=== PATIENT | female | born 1995 | race Caucasian/White ===

== ENCOUNTER 2020-05-18 15:11 | Emergency (ER) | payer MEDICAID, SELFPAY ==
[2020-05-18 15:15] VITALS: BP 151/103; PULSE 67; RESP 16; O2SAT 100; BMI 51.9
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
[2020-05-18 16:35] LABS: MANUAL DIFF FLAG NO
[2020-05-18] MEDS: 0.9 % Sodium Chloride 1,000 ML 999 ML IVCONT (16:37)
[2020-05-18] MEDS: ondansetron HCL 4 MG/2 ML VIAL IVPUSH (16:37)
[2020-05-18 16:38] LABS: Basophils Percent Auto 0.4 % (0-2); Eosinophils Absolute Auto 0.2 X10*3/uL (0.0-0.4); Eosinophils Percent Auto 2.9 % (0-4); Hematocrit 41.1 % (37-47); Hemoglobin 13.2 g/dl (12.0-16.0); Imm Gran Abs Auto 0.02 X10*3/uL (0.00-0.03); Imm Gran Pct Auto 0.2 % (0.0-0.4); Lymphocytes Absolute Auto 1.3 X10*3/uL (1.2-4.9); Lymphocytes Percent Auto 14.9 % (20-40); Mean Corpuscular HGB Conc 32.1 g/dl (31.0-35.0); Mean Corpuscular Hemoglobin 29.8 pg (27.0-33.0); Mean Corpuscular Volume 92.8 fL (80-98); Mean Platelet Volume 10.6 fL (9.4-12.3); Monocytes Absolute Auto 0.4 X10*3/uL (0.1-1.2); Monocytes Percent Auto 5.1 % (2-11); Neutrophils Absolute Auto 6.4 X10*3/uL (2.0-8.3); Neutrophils Percent Auto 76.5 % (45-73); Platelet Count 206 X10*3/uL (160-400); Red Blood Count 4.43 X10*6/uL (4.20-5.50); Red Cell Distribution Width 13.9 % (11.0-16.0); White Blood Count 8.4 X10*3/uL (4.8-10.8)
[2020-05-18 16:40] LABS: Glucose Urine UA NEG (NEG); Leukocyte Esterase Urine NEG (NEG); Nitrite Urine NEG (NEG); PH >= 9.0 (5.0-8.0); Specific Gravity - Urine 1.015 (1.005-1.025); Urine Blood NEG (NEG); Urine Ketones NEG (NEG); Urine Protein TRACE MG/DL (NEG-TRACE)
[2020-05-18 16:46] LABS: Appearance Urine HAZY; Color Urine YELLOW
[2020-05-18 16:47] VITALS: O2SAT 99
[2020-05-18 16:47] LABS: UPreg QC Valid YES; Urine Pregnancy NEGATIVE (NEGATIVE)
[2020-05-18 16:58] LABS: Ethanol < 10 mg/dL
[2020-05-18 17:02] LABS: Amphetamine Screen Urine Not Detected (Not Detect); Barbiturates, Urine Not Detected (Not Detect); Benzodiazepines Screen Urine Not Detected (Not Detect); Cannabinoid Screen Urine POSITIVE (Not Detect); Cocaine Screen Urine POSITIVE (Not Detect); Opiate Screen Urine POSITIVE (Not Detect); Phencyclidine Screen Urine Not Detected (Not Detect)
[2020-05-18 17:04] LABS: Alanine Aminotransferase 12 U/L (0-31); Albumin Level 4.5 g/dL (3.5-5.0); Alkaline Phosphatase 64 U/L (39-117); Anion Gap 10 (12-20); Aspartate Amino Transferase 23 U/L (5-31); Bilirubin Direct 0.2 mg/dL (0.0-0.5); Bilirubin Total 0.5 mg/dL (0.0-1.0); Blood Urea Nitrogen 8 mg/dL (9-16); Calcium 9.4 mg/dL (8.4-10.2); Carbon Dioxide 30 mmol/L (22-29); Chloride 100 mmol/L (96-108); Creatinine Clr Calc Pharmacy 156.9; Estimated Glomerular Filt Rate > 60; Glucose Random 104 mg/dL (60-115); Potassium 4.8 mmol/l (3.3-5.1); Sodium 135 mmol/L (135-145); Total Protein 7.4 g/dL (6.5-8.0)
[2020-05-18] MEDS: Ketorolac Tromethamine 30 MG/ML VIAL IVPUSH (17:23)
[2020-05-18] MEDS: LORazepam 1 MG TABLET PO (17:23)
--- NOTE | 2020-05-18 18:32 | MHC.CARE ---
CARE team received consult regarding this patient's substance use and potential desire to be referred to ATS (detox) program. CARE team initiated ATS bedsearch and was waiting to hear back from two [facility] facilities ([place] and [place]) however they report it is unlikely they have available appointments this evening. Otherwise no beds available within 50 mile radius. CARE team followed up with [facility] at 1815 and was unable to get a response. CARE team checked in with nurse around 1830 to update. Attempted to meet with patient in room 18 to explain, and it appeared patient had left. Updated nurse.
--- NOTE | 2020-05-18 18:36 | PC.NURSE ---
About 15 mins after med administration patient began to pace around the room stating that she felt better and that she needed to go. patient IV removed per request. md aware. patient stating she has to go and will not wait for d/c information or to follow up with case management again.
--- NOTE | 2020-05-18 19:19 | MHC.CARE ---
CARE team received follow up call from [facility] [place] at 1915. No female beds available at [facility] or [place]. Unable to update patient as she has already left.
== END 2020-05-18 18:45 | disposition left against medical advice (07) ==
LOC: HO.ED 15:47
PROVIDERS: Physician Assistant; Emergency Provider Internal Medicine
DX: F11.23 Opioid dependence with withdrawal (principal); Z71.51 Drug abuse counseling and surveillance of drug abuser; R11.2 Nausea with vomiting, unspecified; Z91.14 Patient's other noncompliance with medication regimen; Z79.899 Other long term (current) drug therapy
CPT/HCPCS: 36415; 80048; 80076; 80307; 80320; 81003; 81025; 85025; 96361; 96374; 96375; 99284; J1885; J2405

== ENCOUNTER 2020-05-28 19:11 | Emergency (ER) | payer MEDICAID, SELFPAY ==
[2020-05-28 19:21] VITALS: BP 141/80; PULSE 62; PULSE 68; RESP 19; TEMP 36.6; O2SAT 97; O2SAT 98; BMI 22.6
[2020-05-28] MEDS: ondansetron HCL 4 MG/2 ML VIAL IVPUSH (19:52)
[2020-05-28] MEDS: 0.9 % Sodium Chloride 1,000 ML 999 ML IVCONT (19:52)
[2020-05-28 20:04] LABS: Basophils Percent Auto 0.3 % (0-2); Eosinophils Percent Auto 0.1 % (0-4); Hematocrit 36.7 % (37-47); Hemoglobin 12.1 g/dl (12.0-16.0); Imm Gran Pct Auto 0.6 % (0.0-0.4); Lymphocytes Absolute Auto 0.6 X10*3/uL (1.2-4.9); MANUAL DIFF FLAG SCAN; Mean Corpuscular Hemoglobin 30.4 pg (27.0-33.0); Mean Corpuscular Volume 92.2 fL (80-98); Mean Platelet Volume 11.2 fL (9.4-12.3); Monocytes Absolute Auto 0.7 X10*3/uL (0.1-1.2); Monocytes Percent Auto 4.5 % (2-11); Neutrophils Absolute Auto 14.2 X10*3/uL (2.0-8.3); Neutrophils Percent Auto 90.5 % (45-73); Platelet Count 191 X10*3/uL (160-400); Red Blood Count 3.98 X10*6/uL (4.20-5.50); Red Cell Distribution Width 13.5 % (11.0-16.0); SCAN SMEAR FLAG 1; White Blood Count 15.7 X10*3/uL (4.8-10.8)
--- NOTE | 2020-05-28 20:10 | ED.ABDPAIN ---
HPI - Abdominal Pain General Chief Complaint: Abdominal Pain Stated Complaint: cough, abdominal pain Time Seen by Provider: 05/28/20 20:03 Source: patient Mode of arrival: ambulatory Limitations: no limitations History of Present Illness HPI narrative: 25-year-old female with past medical history of ovarian cysts here with complaints vomiting, diarrhea, generalized abdominal pain, cough for the last 3 days. She tells me she lives with her sister who is COVID positive at home. She denies any fevers, chills, body aches, urinary symptoms. MD elicited complaint: abdominal pain Onset (ago): day(s) Pain Consistency: intermittent Location: diffuse Severity: mild Quality: cramping Migration to: no migration Exacerbating factors: nothing Relieving factors: nothing Associated symptoms: nausea, vomiting and diarrhea Treatments prior to arrival: NSAIDs Related Data Previous Rx's Medication Instructions Recorded ketorolac 10 mg PO Q8H PRN #10 tab 05/28/20 ondansetron 4 mg PO Q8H PRN 4 Days #10 tab 05/28/20 Allergies Allergy/AdvReac Type Severity Reaction Status Date / Time No Known Allergies Allergy Unverified 04/26/20 19:53 [No Known Allergies*] Review of Systems Review of Systems Yes all other systems are reviewed and are negative Constitutional: Reports no additional constitutional complaints, Denies body ache(s), Denies chills, Denies fever(s), Denies headache(s) and Denies weakness Eyes: Reports no additional eye complaints and Denies change in vision Reports system reviewed and no additional complaints, except as documented, Denies dizziness, Denies headache(s), Denies nasal congestion, Denies nasal discharge and Denies neck pain Cardiovascular: Reports no additional cardiovascular complaints, Denies chest pain, Denies leg edema and Denies dyspnea Respiratory: Reports no additional respiratory complaints, Reports cough and Denies dyspnea Gastrointestinal: Reports no additional gastrointestinal complaints, Reports abdominal pain, Reports diarrhea, Reports nausea and Reports vomiting Genitourinary: Reports no additional female genitourinary complaints and Denies urinary incontinence Musculoskeletal: Reports no additional musculoskeletal complaints, Denies back pain, Denies arthralgias, Denies joint swelling, Denies neck pain, Denies numbness and Denies tingling Skin/Breast: Reports system reviewed and no additional complaints, except as docu and Denies rash Reports system reviewed and no additional complaints, except as documented, Denies Abnormal speech present, Denies dizziness, Denies headache(s), Denies numbness, Denies tingling and Denies weakness Physical Exam Vital Signs: Vital Signs: Vital Signs Temp Pulse Resp BP Pulse Ox 05/28/20 19:21 97.8 F 68 19 141/80 H 97 Body Mass Index 22.6 Const: General: cooperative, healthy appearing, comfortable and no acute distress Orientation/consciousness: patient oriented x3 Limitations: no limitations HENMT: Head: Yes normal to inspection Ears: hearing grossly normal bilaterally General nose exam: Normal external nose present Face and sinus: Yes normal facial exam Mouth: Normal oral and palatal mucosa present Throat: Yes posterior oropharynx normal Eyes: General: appearance normal, both eyes and all related structures Pupils: Equal, round and reactive pupils present Neck: Neck: Yes normal visual inspection Chest: Chest palpation & inspection: normal inspection of the chest Resp: Effort & Inspection: normal respiratory effort Auscultation: clear to auscultation bilaterally Cardio: Rate: regular rate Rhythm: regular rhythm Peripheral pulses: Peripheral pulses 2+ throughout GI: Other: Mild diffuse tenderness. No focal tenderness Inspection: Yes normal to inspection Palpation (GI): Soft to palpation Auscultation: normal bowel sounds Back/Spine/Pelvis: Thoracic/Lumbar Spine: thoracic and lumbar spine normal to inspection Skin: General skin exam: no rashes or lesions noted Neuro: General: patient oriented x3, no focal motor deficits and normal sensation to monofilament Cranial nerves: Yes Equal, round and reactive pupils present Cognition (Neuro): normal cognition Speech: No Abnormal speech present Gait exam (Neuro): Normal gait present Motor exam (neuro): 5/5 motor strength present throughout Extrem: General: Yes normal to inspection Course Course Course Narrative: 25-year-old female here with cough, abdominal pain, vomiting, diarrhea for the last 2 days. Known COVID exposure. On exam she is well-appearing. She does have some mild diffuse tenderness. Will check labs, UA, urine , COVID swab. MDM - Abdominal Pain MDM Narrative Medical decision making narrative: Considered viral syndrome, viral gastroenteritis, COVID-19 infection, UTI Lab Data Result diagrams: 05/28/20 19:57 05/28/20 19:57 Labs: Lab Results 05/28/20 05/28/20 05/28/20 Range/Units 19:57 19:57 19:57 WBC 15.7 H (4.8-10.8) X10*3/uL RBC 3.98 L (4.20-5.50) X10*6/uL Hgb 12.1 (12.0-16.0) g/dl Hct 36.7 L (37-47) % MCV 92.2 (80-98) fL MCH 30.4 (27.0-33.0) pg MCHC 33.0 (31.0-35.0) g/dl RDW 13.5 (11.0-16.0) % Plt Count 191 (160-400) X10*3/uL MPV 11.2 (9.4-12.3) fL Immature Gran % (Auto) 0.6 H (0.0-0.4) % Neut % (Auto) 90.5 H (45-73) % Lymph % (Auto) 4.0 L (20-40) % Hunt % (Auto) 4.5 (2-11) % Eos % (Auto) 0.1 (0-4) % Baso % (Auto) 0.3 (0-2) % Lymph # (Auto) 0.6 L (1.2-4.9) X10*3/uL [place] # (Auto) 0.7 (0.1-1.2) X10*3/uL Eos # (Auto) 0.0 (0.0-0.4) X10*3/uL Baso # (Auto) 0.0 (0.0-0.2) X10*3/uL Abs Immat Gran (auto) 0.10 H (0.00-0.03) X10*3/uL Absolute Neuts (auto) 14.2 H (2.0-8.3) X10*3/uL Absolute Nucleated RBC 0.000 (0.0-0.012) X10*3/uL Nucleated RBC % (auto) 0.0 (0.0-0.2) /100WBC Smear Tech's Comments VERIFIED Hold Blue Top SEE NOTE Sodium 139 (135-145) mmol/L Potassium 4.1 (3.3-5.1) mmol/l Chloride 102 (96-108) mmol/L Carbon Dioxide 28 (22-29) mmol/L Anion Gap 13 (12-20) BUN 8 L (9-16) mg/dL Creatinine 0.74 (0.5-1.4) mg/dL Estim Creat Clear Calc 109.7 Estimated GFR > 60 Random Glucose 116 H (60-115) mg/dL Calcium 9.5 (8.4-10.2) mg/dL Total Bilirubin 0.6 (0.0-1.0) mg/dL Direct Bilirubin 0.3 (0.0-0.5) mg/dL AST 19 (5-31) U/L ALT 9 (0-31) U/L Alkaline Phosphatase 68 (39-117) U/L Total Protein 7.5 (6.5-8.0) g/dL Albumin 4.4 (3.5-5.0) g/dL Lipase 6 L (8-78) U/L Urine Color Urine Appearance Urine pH (5.0-8.0) Ur Specific [place] (1.005-1.025) Urine Protein (NEG-TRACE) MG/DL Urine Glucose (UA) (NEG) MG/DL Urine Ketones (NEG) MG/DL Urine Blood (NEG) Urine Nitrite (NEG) Ur Leukocyte Esterase (NEG) Urine RBC (0) /HPF Urine WBC (0-4) /HPF Ur Squamous Epith Cells /LPF Urine Bacteria /LPF Urine Test (NEGATIVE) 05/28/20 05/28/20 Range/Units 20:26 20:26 WBC (4.8-10.8) X10*3/uL RBC (4.20-5.50) X10*6/uL Hgb (12.0-16.0) g/dl Hct (37-47) % MCV (80-98) fL MCH (27.0-33.0) pg MCHC (31.0-35.0) g/dl RDW (11.0-16.0) % Plt Count (160-400) X10*3/uL MPV (9.4-12.3) fL Immature Gran % (Auto) (0.0-0.4) % Neut % (Auto) (45-73) % Lymph % (Auto) (20-40) % Hunt % (Auto) (2-11) % Eos % (Auto) (0-4) % Baso % (Auto) (0-2) % Lymph # (Auto) (1.2-4.9) X10*3/uL [place] # (Auto) (0.1-1.2) X10*3/uL Eos # (Auto) (0.0-0.4) X10*3/uL Baso # (Auto) (0.0-0.2) X10*3/uL Abs Immat Gran (auto) (0.00-0.03) X10*3/uL Absolute Neuts (auto) (2.0-8.3) X10*3/uL Absolute Nucleated RBC (0.0-0.012) X10*3/uL Nucleated RBC % (auto) (0.0-0.2) /100WBC Smear Tech's Comments Hold Blue Top Sodium (135-145) mmol/L Potassium (3.3-5.1) mmol/l Chloride (96-108) mmol/L Carbon Dioxide (22-29) mmol/L Anion Gap (12-20) BUN (9-16) mg/dL Creatinine (0.5-1.4) mg/dL Estim Creat Clear Calc Estimated GFR Random Glucose (60-115) mg/dL Calcium (8.4-10.2) mg/dL Total Bilirubin (0.0-1.0) mg/dL Direct Bilirubin (0.0-0.5) mg/dL AST (5-31) U/L ALT (0-31) U/L Alkaline Phosphatase (39-117) U/L Total Protein (6.5-8.0) g/dL Albumin (3.5-5.0) g/dL Lipase (8-78) U/L Urine Color YELLOW Urine Appearance CLOUDY Urine pH 8.5 H (5.0-8.0) Ur Specific [place] 1.015 (1.005-1.025) Urine Protein 2+ H (NEG-TRACE) MG/DL Urine Glucose (UA) NEG (NEG) MG/DL Urine Ketones NEG (NEG) MG/DL Urine Blood 1+ H (NEG) Urine Nitrite POS H (NEG) Ur Leukocyte Esterase 1+ H (NEG) Urine RBC 1-4 (0) /HPF Urine WBC 30-49 H (0-4) /HPF Ur Squamous Epith Cells 1+ /LPF Urine Bacteria 1+ /LPF Urine Test NEGATIVE (NEGATIVE) Discharge Plan Discharge Clinical Impression: Acute viral syndrome Patient Disposition: Home, Self-Care Instructions: Viral Syndrome (ED) Additional Instructions: we will call you in 1-2 days with results of your COVID swab Take Motrin and Tylenol if able as needed for pain or fever Prescriptions: New ondansetron 4 mg tablet,disintegrating 4 mg PO Q8H PRN (Reason: nausea and vomiting) 4 Days Qty: 10 RF: 0 ketorolac 10 mg tablet 10 mg PO Q8H PRN (Reason: pain) Qty: 10 RF: 0 Referrals: Physician,Unknown [Primary Care Provider] - 2 days Interventions: ED Discharge Assessment Last Done: 05/28/20 21:43 Discharge Date/Time: 05/28/20 21:44 [facility] Past Medical History Source: nursing notes reviewed Medical History Hypertension Ovarian cyst Substance abuse Social History Social History Alcohol intake: never Smoking Status: Current every day smoker Use of substances other than those prescribed or required for medical reasons: Yes Substance Use Type: Heroin Substance Use Frequency: Socially Last Used Substance: Days (ago) Any prior treatment program specific to substance use: Yes Advance Directives: No Advance Directives Information Provided: Yes
[2020-05-28] MEDS: Ketorolac Tromethamine 30 MG/ML VIAL IVPUSH (20:24)
[2020-05-28 20:25] LABS: SLIDE REVIEW VERIFIED
[2020-05-28 20:26] LABS: Albumin Level 4.4 g/dL (3.5-5.0); Alkaline Phosphatase 68 U/L (39-117); Aspartate Amino Transferase 19 U/L (5-31); Bilirubin Direct 0.3 mg/dL (0.0-0.5); Lipase 6 U/L (8-78); Total Protein 7.5 g/dL (6.5-8.0)
[2020-05-28 20:36] LABS: Alanine Aminotransferase 9 U/L (0-31); Anion Gap 13 (12-20); Bilirubin Total 0.6 mg/dL (0.0-1.0); Blood Urea Nitrogen 8 mg/dL (9-16); Calcium 9.5 mg/dL (8.4-10.2); Carbon Dioxide 28 mmol/L (22-29); Chloride 102 mmol/L (96-108); Creatinine Clr Calc Pharmacy 109.7; Estimated Glomerular Filt Rate > 60; Glucose Random 116 mg/dL (60-115); Potassium 4.1 mmol/l (3.3-5.1); Sodium 139 mmol/L (135-145)
[2020-05-28 20:51] LABS: Glucose Urine UA NEG (NEG); Leukocyte Esterase Urine 1+ (NEG); Nitrite Urine POS (NEG); PH 8.5 (5.0-8.0); Specific Gravity - Urine 1.015 (1.005-1.025); Urine Blood 1+ (NEG); Urine Ketones NEG (NEG)
[2020-05-28 21:12] LABS: Color Urine YELLOW; Urine Protein 2+ MG/DL (NEG-TRACE)
[2020-05-28 21:13] LABS: Appearance Urine CLOUDY
[2020-05-28 21:14] LABS: Bacteria Urine 1+ /LPF; Squamous Epithelial Cell Urine 1+ /LPF; WBC Urine 30-49 /HPF (0-4)
[2020-05-28 21:15] LABS: UPreg QC Valid YES; Urine Pregnancy NEGATIVE (NEGATIVE)
--- NOTE | 2020-05-28 21:39 | PC.NURSE ---
patient was ringing and when this nurse answered the call [place] patient demanded to have iv taken out so she could go to make a phone call in the wr, patient stated she was just told she was being discharged. this nurse looked into the patients chart and indeed saw discharge orders, this nurse removed the iv from the patient and printed her discharge paperwork and asked the patient to wait, patient stated she was leaving and going to use the phone for her ride, this nurse asked the patient to take her belongings with her if she was leaving to use the phone and this nurse would bring discharge paperwork outside to her. patient left the room, this nurse printed paperwork and brought it to the patient. it was noted that the patient was bleeding from the iv site, attempts to change the dressing were declined by the patient. patient signed dc papers and left.
== END 2020-05-28 21:44 | disposition home or self-care (01) ==
PROVIDERS: Nurse Practitioner Family; Emergency Provider Emergency Medicine
DX: B34.9 Viral infection, unspecified (principal); R10.9 Unspecified abdominal pain; Z20.828 Contact with and (suspected) exposure to other viral communicable diseases
CPT/HCPCS: 36415; 80053; 80076; 81001; 81003; 81025; 83690; 85025; 87086; 87088; 87186; 87635; 96361; 96374; 96375; 99284; J1885; J2405

== ENCOUNTER 2020-05-29 11:12 | Emergency (ER) | payer MEDICAID, SELFPAY ==
[2020-05-29 11:16] VITALS: BP 135/85; PULSE 107; RESP 22; TEMP 37.5; O2SAT 100; BMI 23.3
--- NOTE | 2020-05-29 11:29 | ED_ITS ---
HPI - Nausea/Vomiting/Diarrhea General Chief complaint: Nausea/Vomiting/Diarrhea Stated complaint: vomiting Time Seen by Provider: 05/29/20 11:28 Source: patient and old records reviewed Mode of arrival: ambulatory Limitations: no limitations History of Present Illness MD elicited complaint: nausea, vomiting and other (weakness, cough, last used heroin 10pm last night) Pertinent past history: other (heroin and cocaine abuse - IV) Onset (ago): day(s) (2) Description of vomiting: watery and bilious Description of diarrhea: watery Associated nausea: Yes Associated abdominal pain: Yes Location of pain: diffuse Radiation: diffuse Pain consistency: constant Severity: severe Exacerbating factors: none Relieving factors: none Context: other (recent UTI - no antibiotics, using IV heroin last used > 12 hours ago, sister has COVID) Associated symptoms: myalgias, cough, fever/chills, loss of appetite, malaise, nausea/vomiting, dysuria, weakness and anxiety Treatment prior to arrival: NSAIDs Related Data Previous Rx's Medication Instructions Recorded ketorolac 10 mg PO Q8H PRN #10 tab 05/28/20 ondansetron 4 mg PO Q8H PRN 4 Days #10 tab 05/28/20 buprenorphine-naloxone [Suboxone] 1 film BUCCAL BID #5 ea 05/29/20 cefuroxime axetil 500 mg PO BID 10 Days #20 tab 05/29/20 ondansetron 4 mg PO Q8H PRN #20 tab 05/29/20 Allergies Allergy/AdvReac Type Severity Reaction Status Date / Time No Known Allergies Allergy Verified 05/29/20 11:16 [No Known Allergies*] Review of Systems Review of Systems: Constitutional : positive Fever, positive Chills, positive fatigue, positive Malaise ENT/Mouth : positive sore throat, positive runny nose Eyes: No Discharge Cardiovascular : No Chest Pain, positive SOB Respiratory : positive Cough, No Sputum Gastrointestinal : positive Nausea, positive Vomiting, positive Diarrhea Genitourinary : positive Dysuria, positive Urinary Frequency Musculoskeletal : positive Myalgia Skin : No rash Neuro : positive Headache Psych: positive anxiety - I can't get my xanax in [place], I'm from [place]. Gastrointestinal: Gastrointestinal: Reports nausea PMFSH Past Medical History Medical History Hypertension Ovarian cyst Substance abuse Social History Social History Alcohol intake: never Smoking Status: Current every day smoker Substance Use Type: Heroin Physical Exam Vital Signs: Vital Signs: Vital Signs Temp Pulse Resp BP Pulse Ox 05/29/20 15:25 100 F 84 17 128/63 98 05/29/20 13:03 100 05/29/20 13:02 103.3 F H 103 H 18 125/86 100 05/29/20 11:16 99.5 F 107 H 22 H 135/85 100 Body Mass Index 23.3 Appearance: Alert. Oriented X3. mild acute distress, watery emesis, anxious, tearful. I dont know where I am but then she answers all questions appropriately once more calmed down Eyes: Pupils equal, round and reactive to light. ENT: Pharynx dry MM Neck: Normal inspection. Neck supple. no meningeal signs CVS: tachycardic heart rate and rhythm. Pulses normal. Respiratory: No respiratory distress. Breath sounds slightly diminished bilateral . Abdomen: Soft and mild diffuse ttp Skin: Skin warm and dry. pale skin color. Normal skin turgor. Extremities: No lower extremity edema. No calf ttp Neuro: Oriented X 3. No motor deficit. No sensory deficit. Course Course Course Narrative: HYDRATED, given IV magnesium, repeat suboxone doing much better after two doses, given ceftriaxone for UTI from last night - she is able to tolerate PO, she is drastically improved, she has no CP/SOB to suggest endocarditis I suspect that this is likely UTI and narcotic withdrawal Reevaluation(s) Reevaluation #1: per CARE team has appointment with suboxone clinic on MDM - Nausea/Vomiting/Diarrhea MDM Narrative Medical decision making narrative: 25 yo female IVDA here yesterday with fevers - COVID sent off sister has COVID at this time given her symptoms and UA was positive yesterday will obtain labs, cultures, CXR, rapid COVID, repeat UA, IV rocephin, has not used > 12 hours heroin wants to start suboxone for withd rawals, dispo per results and findings. Lab Data Result diagrams: 05/29/20 12:15 05/29/20 12:15 Labs: Lab Results 10/20/20 10/20/20 10/20/20 Range/Units 12:08 12:15 12:15 WBC 11.5 H (4.8-10.8) X10*3/uL RBC 3.62 L (4.20-5.50) X10*6/uL Hgb 10.8 L (12.0-16.0) g/dl Hct 33.4 L (37-47) % MCV 92.3 (80-98) fL MCH 29.8 (27.0-33.0) pg MCHC 32.3 (31.0-35.0) g/dl RDW 13.7 (11.0-16.0) % Plt Count 131 L D (160-400) X10*3/uL MPV 10.9 (9.4-12.3) fL Immature Gran % (Auto) 0.5 H (0.0-0.4) % Neut % (Auto) 90.2 H (45-73) % Lymph % (Auto) 5.6 L (20-40) % [place] % (Auto) 3.3 (2-11) % Eos % (Auto) 0.2 (0-4) % Baso % (Auto) 0.2 (0-2) % Lymph # (Auto) 0.7 L (1.2-4.9) X10*3/uL [place] # (Auto) 0.4 (0.1-1.2) X10*3/uL Eos # (Auto) 0.0 (0.0-0.4) X10*3/uL Baso # (Auto) 0.0 (0.0-0.2) X10*3/uL Abs Immat Gran (auto) 0.06 H (0.00-0.03) X10*3/uL Absolute Neuts (auto) 10.4 H (2.0-8.3) X10*3/uL Absolute Nucleated RBC 0.000 (0.0-0.012) X10*3/uL Nucleated RBC % (auto) 0.0 (0.0-0.2) /100WBC Smear Tech's Comments VERIFIED Hold Blue Top SEE NOTE Sodium (135-145) mmol/L Potassium (3.3-5.1) mmol/l Chloride (96-108) mmol/L Carbon Dioxide (22-29) mmol/L Anion Gap (12-20) BUN (9-16) mg/dL Creatinine (0.5-1.4) mg/dL Estim Creat Clear Calc Estimated GFR Random Glucose (60-115) mg/dL Lactic Acid (0.5-2.0) mmol/L Calcium (8.4-10.2) mg/dL Magnesium (1.6-2.6) mg/dL Total Bilirubin (0.0-1.0) mg/dL Direct Bilirubin (0.0-0.5) mg/dL AST (5-31) U/L ALT (0-31) U/L Alkaline Phosphatase (39-117) U/L Total Protein (6.5-8.0) g/dL Albumin (3.5-5.0) g/dL Lipase (8-78) U/L Urine Color Urine Appearance Urine pH (5.0-8.0) Ur Specific [place] (1.005-1.025) Urine Protein (NEG-TRACE) MG/DL Urine Glucose (UA) (NEG) MG/DL Urine Ketones (NEG) MG/DL Urine Blood (NEG) Urine Nitrite (NEG) Ur Leukocyte Esterase (NEG) Urine Test (NEGATIVE) Urine Opiates Screen (Not Detect) Ur Barbiturates Screen (Not Detect) Ur Phencyclidine Scrn (Not Detect) Ur Amphetamines Screen (Not Detect) U Benzodiazepines Scrn (Not Detect) Urine Cocaine Screen (Not Detect) U Marijuana (THC) Screen (Not Detect) Coronavirus (PCR) NEGATIVE (Negative) 05/29/20 05/29/20 05/29/20 Range/Units 12:15 12:15 15:33 WBC (4.8-10.8) X10*3/uL RBC (4.20-5.50) X10*6/uL Hgb (12.0-16.0) g/dl Hct (37-47) % MCV (80-98) fL MCH (27.0-33.0) pg MCHC (31.0-35.0) g/dl RDW (11.0-16.0) % Plt Count (160-400) X10*3/uL MPV (9.4-12.3) fL Immature Gran % (Auto) (0.0-0.4) % Neut % (Auto) (45-73) % Lymph % (Auto) (20-40) % [place] % (Auto) (2-11) % Eos % (Auto) (0-4) % Baso % (Auto) (0-2) % Lymph # (Auto) (1.2-4.9) X10*3/uL [place] # (Auto) (0.1-1.2) X10*3/uL Eos # (Auto) (0.0-0.4) X10*3/uL Baso # (Auto) (0.0-0.2) X10*3/uL Abs Immat Gran (auto) (0.00-0.03) X10*3/uL Absolute Neuts (auto) (2.0-8.3) X10*3/uL Absolute Nucleated RBC (0.0-0.012) X10*3/uL Nucleated RBC % (auto) (0.0-0.2) /100WBC Smear Tech's Comments Hold Blue Top Sodium 133 L (135-145) mmol/L Potassium 3.5 (3.3-5.1) mmol/l Chloride 97 (96-108) mmol/L Carbon Dioxide 27 (22-29) mmol/L Anion Gap 13 (12-20) BUN 9 (9-16) mg/dL Creatinine 0.79 (0.5-1.4) mg/dL Estim Creat Clear Calc 102.8 Estimated GFR > 60 Random Glucose 104 (60-115) mg/dL Lactic Acid 1.2 (0.5-2.0) mmol/L Calcium 8.7 (8.4-10.2) mg/dL Magnesium 1.5 L (1.6-2.6) mg/dL Total Bilirubin 0.6 (0.0-1.0) mg/dL Direct Bilirubin 0.3 (0.0-0.5) mg/dL AST 25 (5-31) U/L ALT 16 (0-31) U/L Alkaline Phosphatase 67 (39-117) U/L Total Protein 6.8 (6.5-8.0) g/dL Albumin 4.1 (3.5-5.0) g/dL Lipase < 4 L (8-78) U/L Urine Color YELLOW Urine Appearance CLEAR Urine pH 7.0 (5.0-8.0) Ur Specific [place] <= 1.005 (1.005-1.025) Urine Protein NEG (NEG-TRACE) MG/DL Urine Glucose (UA) NEG (NEG) MG/DL Urine Ketones NEG (NEG) MG/DL Urine Blood 1+ H (NEG) Urine Nitrite NEG (NEG) Ur Leukocyte Esterase 1+ H (NEG) Urine Test NEGATIVE (NEGATIVE) Urine Opiates Screen (Not Detect) Ur Barbiturates Screen (Not Detect) Ur Phencyclidine Scrn (Not Detect) Ur Amphetamines Screen (Not Detect) U Benzodiazepines Scrn (Not Detect) Urine Cocaine Screen (Not Detect) U Marijuana (THC) Screen (Not Detect) Coronavirus (PCR) (Negative) 05/29/20 Range/Units 15:33 WBC (4.8-10.8) X10*3/uL RBC (4.20-5.50) X10*6/uL Hgb (12.0-16.0) g/dl Hct (37-47) % MCV (80-98) fL MCH (27.0-33.0) pg MCHC (31.0-35.0) g/dl RDW (11.0-16.0) % Plt Count (160-400) X10*3/uL MPV (9.4-12.3) fL Immature Gran % (Auto) (0.0-0.4) % Neut % (Auto) (45-73) % Lymph % (Auto) (20-40) % [place] % (Auto) (2-11) % Eos % (Auto) (0-4) % Baso % (Auto) (0-2) % Lymph # (Auto) (1.2-4.9) X10*3/uL [place] # (Auto) (0.1-1.2) X10*3/uL Eos # (Auto) (0.0-0.4) X10*3/uL Baso # (Auto) (0.0-0.2) X10*3/uL Abs Immat Gran (auto) (0.00-0.03) X10*3/uL Absolute Neuts (auto) (2.0-8.3) X10*3/uL Absolute Nucleated RBC (0.0-0.012) X10*3/uL Nucleated RBC % (auto) (0.0-0.2) /100WBC Smear Tech's Comments Hold Blue Top Sodium (135-145) mmol/L Potassium (3.3-5.1) mmol/l Chloride (96-108) mmol/L Carbon Dioxide (22-29) mmol/L Anion Gap (12-20) BUN (9-16) mg/dL Creatinine (0.5-1.4) mg/dL Estim Creat Clear Calc Estimated GFR Random Glucose (60-115) mg/dL Lactic Acid (0.5-2.0) mmol/L Calcium (8.4-10.2) mg/dL Magnesium (1.6-2.6) mg/dL Total Bilirubin (0.0-1.0) mg/dL Direct Bilirubin (0.0-0.5) mg/dL AST (5-31) U/L ALT (0-31) U/L Alkaline Phosphatase (39-117) U/L Total Protein (6.5-8.0) g/dL Albumin (3.5-5.0) g/dL Lipase (8-78) U/L Urine Color Urine Appearance Urine pH (5.0-8.0) Ur Specific [place] (1.005-1.025) Urine Protein (NEG-TRACE) MG/DL Urine Glucose (UA) (NEG) MG/DL Urine Ketones (NEG) MG/DL Urine Blood (NEG) Urine Nitrite (NEG) Ur Leukocyte Esterase (NEG) Urine Test (NEGATIVE) Urine Opiates Screen POSITIVE H (Not Detect) Ur Barbiturates Screen Not Detected (Not Detect) Ur Phencyclidine Scrn Not Detected (Not Detect) Ur Amphetamines Screen Not Detected (Not Detect) U Benzodiazepines Scrn Not Detected (Not Detect) Urine Cocaine Screen POSITIVE H (Not Detect) U Marijuana (THC) Screen POSITIVE H (Not Detect) Coronavirus (PCR) (Negative) Critical Care Time Critical Care Time Total Critical Care Time: 60 Attestation: I personally attest to this time spent taking care of the patient Discharge Plan Discharge Clinical Impression: Opiate withdrawal Fever Qualifiers: Fever type: unspecified Qualified Code(s): R50.9 - Fever, unspecified Urinary tract infection Qualifiers: Urinary tract infection type: acute cystitis Hematuria presence: with hematuria Qualified Code(s): N30.01 - Acute cystitis with hematuria Patient Disposition: Home, Self-Care Instructions: Urinary Tract Infection in Women (ED), Opioid Withdrawal (ED) Additional Instructions: please follow up with the suboxone clinic Prescriptions: New ondansetron 4 mg tablet,disintegrating 4 mg PO Q8H PRN (Reason: nausea and vomiting) Qty: 20 RF: 0 cefuroxime axetil 500 mg tablet 500 mg PO BID 10 Days Qty: 20 RF: 0 buprenorphine-naloxone [Suboxone] 8-2 mg film 1 film buccal BID Qty: 5 RF: 0 No Action ondansetron 4 mg tablet,disintegrating 4 mg PO Q8H PRN (Reason: nausea and vomiting) 4 Days Qty: 10 RF: 0 ketorolac 10 mg tablet 10 mg PO Q8H PRN (Reason: pain) Qty: 10 RF: 0 Referrals: Physician,None [Primary Care Provider] - 2 days (if not better) Stand Alone Forms: Work/School Release
--- NOTE | 2020-05-29 11:32 | XR_ITS ---
EXAMINATION: XR CHEST CLINICAL INFORMATION: Cough and fever COMPARISON: None TECHNIQUE: Frontal view of the chest was obtained. FINDINGS: No significant abnormality is noted involving the heart, lungs, mediastinum, bony thorax or soft tissues. IMPRESSION: Unremarkable examination.
[2020-05-29] MEDS: Buprenorphine/Naloxone 4/1 mg FILM 1 FILM SUBLINGUAL ×2 (11:51→14:05)
[2020-05-29] MEDS: ondansetron HCL 4 MG/2 ML VIAL IVPUSH (11:51)
[2020-05-29] MEDS: 0.9 % Sodium Chloride 1,000 ML 999 ML IVCONT (11:52)
[2020-05-29] MEDS: LORazepam 2 MG/ML VIAL 0.5 MG IVPUSH (12:05)
[2020-05-29] MEDS: Acetaminophen 325 MG TABLET 650 MG PO (12:06)
[2020-05-29 12:26] LABS: Basophils Percent Auto 0.2 % (0-2); Imm Gran Abs Auto 0.06 X10*3/uL (0.00-0.03); Imm Gran Pct Auto 0.5 % (0.0-0.4); MANUAL DIFF FLAG SCAN; PLT CLUMP 1; Red Cell Distribution Width 13.7 % (11.0-16.0); SCAN SMEAR FLAG 1
[2020-05-29 12:28] LABS: Eosinophils Percent Auto 0.2 % (0-4); Hematocrit 33.4 % (37-47); Hemoglobin 10.8 g/dl (12.0-16.0); Lymphocytes Absolute Auto 0.7 X10*3/uL (1.2-4.9); Lymphocytes Percent Auto 5.6 % (20-40); Mean Corpuscular HGB Conc 32.3 g/dl (31.0-35.0); Mean Corpuscular Hemoglobin 29.8 pg (27.0-33.0); Mean Corpuscular Volume 92.3 fL (80-98); Mean Platelet Volume 10.9 fL (9.4-12.3); Monocytes Absolute Auto 0.4 X10*3/uL (0.1-1.2); Monocytes Percent Auto 3.3 % (2-11); Neutrophils Absolute Auto 10.4 X10*3/uL (2.0-8.3); Neutrophils Percent Auto 90.2 % (45-73); Red Blood Count 3.62 X10*6/uL (4.20-5.50); White Blood Count 11.5 X10*3/uL (4.8-10.8)
--- NOTE | 2020-05-29 12:30 | PC.NURSE ---
PT ALERT AND ORIENTED X4. SKIN HOT TO TOUCH, DRY, FLUSHED. RESPIRATIONS EVEN AND NON LABORED. PT ACTIVELY VOMITING CLEAR EMESIS, RESTLESS, TEARFUL, REPEATEDLY STATING PLEASE HELP ME! ADMITS TO HEROIN USE, LAST USED APPROX 2100 YESTREDAY. IV ACCESS OBTAINED AND LABS SENT. MEDICATED WITH ZOFRAN, FLUIDS, SUBOXONE, TYLENOL FOR FEVER PER OCT.
[2020-05-29 12:32] LABS: Platelet Count 131 X10*3/uL (160-400)
[2020-05-29 12:47] LABS: Lactic Acid 1.2 mmol/L (0.5-2.0)
[2020-05-29 12:52] LABS: Alanine Aminotransferase 16 U/L (0-31); Albumin Level 4.1 g/dL (3.5-5.0); Alkaline Phosphatase 67 U/L (39-117); Anion Gap 13 (12-20); Aspartate Amino Transferase 25 U/L (5-31); Bilirubin Direct 0.3 mg/dL (0.0-0.5); Bilirubin Total 0.6 mg/dL (0.0-1.0); Blood Urea Nitrogen 9 mg/dL (9-16); Calcium 8.7 mg/dL (8.4-10.2); Carbon Dioxide 27 mmol/L (22-29); Chloride 97 mmol/L (96-108); Creatinine Clr Calc Pharmacy 102.8; Estimated Glomerular Filt Rate > 60; Glucose Random 104 mg/dL (60-115); Magnesium 1.5 mg/dL (1.6-2.6); Potassium 3.5 mmol/l (3.3-5.1); Sodium 133 mmol/L (135-145); Total Protein 6.8 g/dL (6.5-8.0)
[2020-05-29] MEDS: cefTRIAXone sodium 2 GM in 0.9 % Sodium Chloride 50 ML IV (12:59)
[2020-05-29 13:02] VITALS: BP 125/86; PULSE 103; RESP 18; TEMP 39.6; O2SAT 100
[2020-05-29 13:03] VITALS: O2SAT 100
[2020-05-29 13:05] LABS: SLIDE REVIEW VERIFIED
[2020-05-29 13:06] LABS: Lipase < 4 U/L (8-78)
[2020-05-29 13:26] LABS: SARS COV2 PCR INHOUSE NEGATIVE (Negative)
[2020-05-29] MEDS: Ibuprofen 600 MG TABLET PO (14:06)
[2020-05-29] MEDS: Magnesium Sulfate/H2O 2 GM/50 ML PIGGYBACK IV (14:06)
--- NOTE | 2020-05-29 14:18 | PC.NURSE ---
pt incontinent of urine x3. linens changed. provided with wipes and new pants. remains restless and states i don't feel good but does not elaborate on specific complaints. mag infusing, and medicated with motrin for continued fever, per mar
[2020-05-29 15:25] VITALS: BP 128/63; PULSE 84; RESP 17; TEMP 37.7; O2SAT 98
[2020-05-29 15:50] LABS: Glucose Urine UA NEG (NEG); Leukocyte Esterase Urine 1+ (NEG); Nitrite Urine NEG (NEG); Specific Gravity - Urine <= 1.005 (1.005-1.025); Urine Blood 1+ (NEG); Urine Ketones NEG (NEG); Urine Protein NEG (NEG-TRACE)
[2020-05-29 15:52] LABS: Appearance Urine CLEAR; Color Urine YELLOW
[2020-05-29 15:54] LABS: Urine Pregnancy NEGATIVE (NEGATIVE)
[2020-05-29 15:55] LABS: UPreg QC Valid YES
--- NOTE | 2020-05-29 15:55 | MHC.CARE ---
Addiction Consult Service note: This marketing writer met with the 25 year old Marshallese speaking female in bed one of the main ED to discuss substance use and treatment options. Patient was given Suboxone in the ED to manage withdrawal. Patient reports feeling much better after receiving the medication. Patient reports an interest in continuing the Suboxone after discharge. Patient was not familiar with Suboxone or MAT and education was provided. Discussed [facility] [place] and the virtual meetings on Facebook live as another form of support. 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 Patient interested in going to the [facility] for ongoing MAT. Appointment scheduled at the [facility] for , 05/31 at 3PM. Patient aware. ED provider will provide patient with a bridge prescription until her appointment.
[2020-05-29 16:13] LABS: Amphetamine Screen Urine Not Detected (Not Detect); Barbiturates, Urine Not Detected (Not Detect); Benzodiazepines Screen Urine Not Detected (Not Detect); Cannabinoid Screen Urine POSITIVE (Not Detect); Cocaine Screen Urine POSITIVE (Not Detect); Opiate Screen Urine POSITIVE (Not Detect); Phencyclidine Screen Urine Not Detected (Not Detect)
[2020-05-29 16:23] LABS: Bacteria Urine TRACE /LPF; Squamous Epithelial Cell Urine TRACE /LPF
== END 2020-05-29 16:55 | disposition home or self-care (01) ==
PROVIDERS: Emergency Provider Emergency Medicine
DX: F11.23 Opioid dependence with withdrawal (principal); Z20.828 Contact with and (suspected) exposure to other viral communicable diseases; R50.9 Fever, unspecified; N30.01 Acute cystitis with hematuria; I10 Essential (primary) hypertension
CPT/HCPCS: 36415; 71045; 80048; 80076; 80307; 81001; 81025; 83605; 83690; 83735; 85025; 87040; 87077; 87186; 87635; 96365; 96366; 96367; 96375; 99285; 99291; J0573; J2060; J3475

== ENCOUNTER 2022-02-19 14:40 | Emergency (ER) | payer MEDICAID, SELFPAY ==
--- NOTE | 2022-02-19 14:49 | ED_ITS ---
HPI - Overdose General Chief Complaint: Overdose Stated Complaint: HEROIN OD,12MG NARCAN GIVEN BY HFD W/GOO RESULT Time Seen by Provider: 02/19/22 14:46 Source: patient and EMS Mode of arrival: EMS Limitations: no limitations History of Present Illness HPI Narrative: found overdosed in [place] bathroom - apneic and bagged by PD given 12mg IN narcan complaint: accidental overdose Onset (ago): minute(s) (just prior to arrival ) Context: Accidental Overdose: wanted to get high Associated symptoms: nausea/vomiting Treatments Prior to Arrival: oxygen (bagged) and narcan (12mg) Related Data Previous Rx's Medication Instructions Recorded ketorolac 10 mg tablet 10 mg PO Q8H PRN pain #10 tabs 05/28/20 ondansetron 4 mg disintegrating 4 mg PO Q8H PRN nausea and 05/28/20 tablet vomiting 4 days #10 tabs buprenorphine 8 mg-naloxone 2 mg 1 film buccal BID #5 ea 05/29/20 sublingual film (Suboxone) cefuroxime axetil 500 mg tablet 500 mg PO BID 10 days #20 tabs 05/29/20 ondansetron 4 mg disintegrating 4 mg PO Q8H PRN nausea and 05/29/20 tablet vomiting #20 tabs Allergies Allergy/AdvReac Type Severity Reaction Status Date / Time No Known Allergies Allergy Verified 05/29/20 11:16 [No Known Allergies*] Review of Systems Review of Systems: Constitutional : No Fever, No Chills ENT/Mouth : No Ear Pain, No Nasal Congestion, No sore throat Eyes: No Eye Pain, No Swelling, No Redness Cardiovascular : No Chest Pain, No SOB Respiratory : No Cough, No Sputum, No Dyspnea Gastrointestinal : pos Nausea, No Vomiting, No Diarrhea, No Hematochezia, No Melena Genitourinary : No Dysuria, No Urinary Frequency, No Hematuria Musculoskeletal : No Myalgias Skin : No Skin Lesions, No rash Neuro : No Weakness, No Numbness, No Paresthesias, No Dizziness, No Headache Psych : positive Anxiety, no Depression, no SI/HI Heme/Lymph: No Lymphadenopathy Endocrine : No Polyuria, No Polydipsia All other systems reviewed and are negative [facility] Past Medical History Attestation statement: The following information was validated with the patient. Medical History Hypertension Ovarian cyst Substance abuse Social History Social History (Updated 02/19/22 @ 15:09 by Eboni Antunez DO) Alcohol intake: never Patient Tobacco Use Status: Tobacco use Unknown Substance Use Type: Heroin Advance Directives: No Advance Directives Information Provided: No Physical Exam Vital Signs: Vital Signs: Last Vital Signs Temp 98 F 02/19/22 14:57 Pulse 100 02/19/22 14:57 Resp 20 02/19/22 14:57 BP 124/72 02/19/22 14:57 Pulse Ox 98 02/19/22 14:57 O2 Del Method 02/19/22 14:57 BMI result Body Mass Index 22.7 Appearance: Alert. Oriented X3. No acute distress. Anxious initially stated she has never used heroin before but then I asked her about prior suboxone use and she states I am done with drugs. Eyes: Pupils equal, round and reactive to light. ENT: Pharynx normal. Yawning Neck: Normal inspection. Neck supple. CVS: Normal heart rate and rhythm. Pulses normal. Respiratory: No respiratory distress. Breath sounds normal. Abdomen: Soft and non-tender. Skin: Skin warm and dry. Normal skin color. Normal skin turgor. Extremities: No lower extremity edema. No calf ttp Neuro: Oriented X 3. No motor deficit. No sensory deficit. Course Course Course Narrative: can be DC at 430pm if patient remains clear and no need for repeat narcan MDM - Overdose MDM Narrative Medical decision making narrative: 27 yo female with hx of substance abuse used heroin today - no SI, she was given narcan I offered SUDE evaluation, narcan and recovery coaches - she declines all three. She is GCS 15. Will observe and release. Discharge Plan Discharge Clinical Impression: Opiate overdose Qualifiers: Encounter type: initial encounter Injury intent: accidental or unintentional Qualified Code(s): T40.601A - Poisoning by unspecified narcotics, accidental (unintentional), initial encounter Patient Disposition: Home, Self-Care Instructions: Adult Overdose (ED), Opioid Use Disorder (ED) Additional Instructions: return to ED for any worsening symptoms or concerns if you change your mind we can help with detox and to start on suboxone or methadone Prescriptions: No Action ondansetron 4 mg tablet,disintegrating 4 mg PO Q8H PRN (Reason: nausea and vomiting) 4 Days Qty: 10 0RF ketorolac 10 mg tablet 10 mg PO Q8H PRN (Reason: pain) Qty: 10 0RF Rx Instructions: Patient received first dose in ED ondansetron 4 mg tablet,disintegrating 4 mg PO Q8H PRN (Reason: nausea and vomiting) Qty: 20 0RF cefuroxime axetil 500 mg tablet 500 mg PO BID 10 Days Qty: 20 0RF buprenorphine-naloxone [Suboxone] 8-2 mg film 1 film buccal BID Qty: 5 0RF
[2022-02-19 14:57] VITALS: BP 124/72; BP 130/70; PULSE 100; RESP 20; TEMP 36.6; O2SAT 100; O2SAT 98; BMI 22.7
--- NOTE | 2022-02-19 15:48 | HO.SUDE ---
Met with pt in ED 6H to discuss substance use. Pt resistant to engage with t/w, states I just need my laptop to tell my mom I'm okay. Pt reports recently being discharged from [facility] and used heroin, 1 bag IN, for the first time since dc which resulted in overdose. Pt denies hx overdoses, states It will never happen again. Pt denies other substances. Reports first use at age 26, however, chart review shows documentation from [facility] at age 25. Pt states My anxiety meds help me stay clean. Pt educated regarding community supports and resources, including [facility]. Pt declines all at this time. Pt reports after discharge will go to grandfather's house in [place]. Pt provided with t/w contact information if needed. Discussed with pts RN as well as ED provider.
[2022-02-19] MEDS: Naloxone HCl Nasal TAKE HOME 4 MG SPRAY NOSTRILALT (16:56)
== END 2022-02-19 17:38 | disposition home or self-care (01) ==
PROVIDERS: Emergency Provider Student in an Organized Health Care Education/Training Program
DX: T40.1X1A Poisoning by heroin, accidental (unintentional), initial encounter (principal); R11.2 Nausea with vomiting, unspecified; Y92.511 Restaurant or cafe as the place of occurrence of the external cause; F41.9 Anxiety disorder, unspecified; I10 Essential (primary) hypertension; F11.20 Opioid dependence, uncomplicated; Z79.899 Other long term (current) drug therapy
CPT/HCPCS: 99282; 99283

== ENCOUNTER 2022-05-26 23:47 | Emergency (ER) | payer MEDICAID, SELFPAY ==
[2022-05-26 23:51] VITALS: BP 118/65; PULSE 130; RESP 22; TEMP 36.8; O2SAT 100; BMI 21.3
[2022-05-27 00:14] LABS: UPreg QC Valid YES; Urine Pregnancy POSITIVE (NEGATIVE)
[2022-05-27 00:15] LABS: Appearance Urine Clear; Color Urine Yellow; Glucose Urine UA Negative (Negative); Leukocyte Esterase Urine Negative (Negative); Nitrite Urine Negative (Negative); PH 7.5 (5.0-9.0); Urine Blood Negative (Negative); Urine Ketones Negative (Negative); Urine Protein Negative (Neg-Trace)
[2022-05-27 00:43] LABS: Amphetamine Screen Urine Not Detected (Not Detect); Barbiturates, Urine Not Detected (Not Detect); Benzodiazepines Screen Urine Not Detected (Not Detect); Cannabinoid Screen Urine POSITIVE (Not Detect); Cocaine Screen Urine POSITIVE (Not Detect); Fentanyl, urine POSITIVE (Not Detect); Opiate Screen Urine POSITIVE (Not Detect); Phencyclidine Screen Urine Not Detected (Not Detect)
== END 2022-05-27 01:48 | disposition left against medical advice (07) ==
PROVIDERS: Emergency Provider Emergency Medicine
DX: M79.671 Pain in right foot (principal); M79.672 Pain in left foot; Z79.899 Other long term (current) drug therapy
CPT/HCPCS: 80307; 81003; 81025; 99282; 99283

== ENCOUNTER 2022-05-30 02:42 | Emergency (ER) | payer MEDICAID, SELFPAY ==
[2022-05-30 03:03] VITALS: BP 106/64; PULSE 76; RESP 18; TEMP 36.6; O2SAT 99; BMI 20.1
--- NOTE | 2022-05-30 04:22 | ED.GENADULT ---
HPI - General Adult General Chief complaint: General Medical Stated complaint: gen medical Time Seen by Provider: 05/30/22 04:01 Source: patient Mode of arrival: ambulatory Limitations: no limitations History of Present Illness HPI narrative: Patient with multiple complaints initially said she is very anxious on medications Ingris also wants medication for opiate withdrawal as she used only 1 back in earlier today then she said check for the as she is not sure she is LMP was 2 months ago she was at [facility] 05/27 urine positive for but patient left without report no vaginal bleeding no abdominal pain Related Data Previous Rx's Medication Instructions Recorded ketorolac 10 mg tablet 10 mg PO Q8H PRN pain #10 tabs 05/28/20 ondansetron 4 mg disintegrating 4 mg PO Q8H PRN nausea and 05/28/20 tablet vomiting 4 days #10 tabs buprenorphine 8 mg-naloxone 2 mg 1 film buccal BID #5 ea 05/29/20 sublingual film (Suboxone) cefuroxime axetil 500 mg tablet 500 mg PO BID 10 days #20 tabs 05/29/20 ondansetron 4 mg disintegrating 4 mg PO Q8H PRN nausea and 20 tablet vomiting #20 tabs Allergies Allergy/AdvReac Type Severity Reaction Status Date / Time No Known Allergies Allergy Verified 05/30/22 03:02 [No Known Allergies*] Review of Systems Review of Systems: Yes all other systems are reviewed and are negative [facility] Past Medical History Medical History Hypertension Ovarian cyst Substance abuse Social History Social History Alcohol intake: never Patient Tobacco Use Status: Tobacco use Unknown Substance Use Type: Heroin Advance Directives: No Advance Directives Information Provided: Yes Physical Exam ED Vital Signs: Vital Signs - 24 hr 05/30/22 03:03 05/30/22 04:35 Temperature 97.8 F Pulse Rate 76 77 Respiratory Rate 18 18 Blood Pressure 106/64 110/50 L Pulse Oximetry 99 99 Oxygen Delivery Method Room Air Room Air BMI result Body Mass Index 20.1 Appearance: Alert. Oriented X3. No acute distress. Anxious Eyes: PERRLA, No Nystagmus ENT: Pharynx normal. Oral Mucosa moist Neck: Normal inspection. Neck supple. CVS: Normal heart rate and rhythm. Pulses normal. Respiratory: No respiratory distress. Equal air entry bilateral, no wheezing/rales/rhonchi Abdomen: Soft and nontender. Bowel sounds are present, no mass palpable, no CVA tenderness Skin: Skin warm and dry. Normal skin color. Normal skin turgor. Extremities: No lower extremity edema. No calf tenderness Neuro: Oriented X 3. Medical Decision Making MDM Narrative Medical decision making narrative: Patient with substance abuse mostly opiates with anxiety urine was positive bedside ultrasound was done which shows IUP gestation sac with 5 weeks 5 days gestation MAURY 12/28/2022 patient to follow with OBG, patient aware of side effect of Klonopin but still wants as she has taken this in the previous pregnancies also Lab Data Lab results reviewed: Yes I reviewed the patient's lab results. Labs: Lab Results 05/30/22 05/30/22 Range/Units 04:17 04:17 Urine Color Yellow Urine Appearance Clear Urine pH 6.5 (5.0-9.0) Ur Specific [place] 1.015 (1.005-1.025) Urine Protein Negative (Neg-Trace) mg/dL Urine Glucose (UA) Negative (Negative) mg/dL Urine Ketones Negative (Negative) mg/dL Urine Blood Negative (Negative) Urine Nitrite Negative (Negative) Ur Leukocyte Esterase Negative (Negative) Urine RBC 0-2 (0-2) /HPF Urine WBC 0-5 (0-5) /HPF Ur Squamous Epith Cells 0-2 (0-2) /HPF Urine Bacteria None Seen (None Seen) Hyaline Casts 0-2 (0-2) /LPF Urine Test POSITIVE H (NEGATIVE) Discharge Plan Discharge Clinical Impression: Opiate abuse, episodic, Anxiety, Early stage of Patient Disposition: Home, Self-Care Instructions: Anxiety (ED), First Trimester (ED), Narcotic Use Disorder (ED) Additional Instructions: Follow-up with detox clinic upstairs at 09:00 By ultrasound today you are 5 weeks 5 days , MAURY is on 12/28/22 Follow-up with OBG Prescriptions: No Action ondansetron 4 mg tablet,disintegrating 4 mg PO Q8H PRN (Reason: nausea and vomiting) 4 Days Qty: 10 0RF ketorolac 10 mg tablet 10 mg PO Q8H PRN (Reason: pain) Qty: 10 0RF Rx Instructions: Patient received first dose in ED ondansetron 4 mg tablet,disintegrating 4 mg PO Q8H PRN (Reason: nausea and vomiting) Qty: 20 0RF cefuroxime axetil 500 mg tablet 500 mg PO BID 10 Days Qty: 20 0RF buprenorphine-naloxone [Suboxone] 8-2 mg film 1 film buccal BID Qty: 5 0RF Referrals: Mehrdad Avilez MD [Physician] - 2 weeks Interventions: ED Discharge Assessment Last Done: 05/30/22 05:42 Discharge Date/Time: 05/30/22 05:45
[2022-05-30 04:25] LABS: UPreg QC Valid YES; Urine Pregnancy POSITIVE (NEGATIVE)
[2022-05-30 04:27] LABS: Appearance Urine Clear; Color Urine Yellow; Glucose Urine UA Negative (Negative); Leukocyte Esterase Urine Negative (Negative); Nitrite Urine Negative (Negative); PH 6.5 (5.0-9.0); Specific Gravity - Urine 1.015 (1.005-1.025); Urine Blood Negative (Negative); Urine Ketones Negative (Negative); Urine Protein Negative (Neg-Trace)
[2022-05-30 04:31] LABS: Bacteria Urine None Seen (None Seen); Hyaline Casts Urine 0-2 /LPF (0-2); RBC Urine 0-2 /HPF (0-2); Squamous Epithelial Cell Urine 0-2 /HPF (0-2); WBC Urine 0-5 /HPF (0-5)
[2022-05-30 04:35] VITALS: BP 110/50; PULSE 77; RESP 18; O2SAT 99
--- NOTE | 2022-05-30 04:45 | PC.NURSE ---
RN to bedside for primary evaluation/treatment. VSS obtained and stable at this time. Pt inquiring with RN as to whether or not she will be getting an ultrasound if a Urine came back positive; education provided to the patient that US s/p confirmed is completed on a case by case basis depending upon the pt's presentation/complaints. Pt asking if she can/will get an ultrasound of her foot clarifying that she injured the foot 2 weeks ago at work and not 2 months ago as she previously reported to this RN. Pt visibly restless, pacing in the room, shaking her leg and intermittently becoming frustrated with this RN's line of questioning regarding/surrounding line of questioning to ensure proper information received. The pt declined ordered ibuprofen and ativan stating ibuprofen doesn't help this kind of pain and stating she has never taken ativan and doesn't want to start now. to bedside for additional reinforcements, pt requesting klonopin as she reports taking this normally at home but ran out. currently at bedside completing bedside US
[2022-05-30] MEDS: LORazepam 1 MG TABLET 2 MG PO (05:09)
== END 2022-05-30 05:45 | disposition home or self-care (01) ==
PROVIDERS: Emergency Provider Internal Medicine
DX: O99.321 Drug use complicating pregnancy, first trimester (principal); F11.20 Opioid dependence, uncomplicated; F19.10 Other psychoactive substance abuse, uncomplicated; O99.341 Other mental disorders complicating pregnancy, first trimester; F41.9 Anxiety disorder, unspecified; Z3A.01 Less than 8 weeks gestation of pregnancy; I10 Essential (primary) hypertension; Z79.899 Other long term (current) drug therapy
CPT/HCPCS: 81001; 81025; 99283